=== PATIENT | female | born 1950 | race Caucasian/White ===

== ENCOUNTER 2018-02-28 20:37 | Emergency (ER) | payer OTHER ==
[~2018-02-28] VITALS: Ht 165.1 cm; Wt 52.2 kg
[~2018-02-28 20:37] MED LIST: ASPIRIN EC81 M1 PO; BIOTENE PO; MULTIVITAMINS1 EAC7 PO; NAPROSYN500 MG PO; VITAMIN D10000 UNIT PO
[2018-02-28 20:38] VITALS: BP 152/69
== END 2018-02-28 22:25 | disposition home or self-care (01) ==
LOC: ER 20:37
DX: S61.215A Laceration without foreign body of left ring finger without damage to nail, initial encounter (principal); W26.0XXA Contact with knife, initial encounter; Y92.89 Other specified places as the place of occurrence of the external cause; Y93.89 Activity, other specified; Y99.8 Other external cause status